=== PATIENT | female | born 1955 | race Caucasian/White ===

== ENCOUNTER 2017-10-13 10:18 | Inpatient (IN) | payer OTHER ==
[~2017-10-13] VITALS: Ht 147.3 cm; Wt 96.3 kg
[~2017-10-13 10:18] MED LIST: AMITRIPTYLINE50 MG PO; DEMEROL HYDROCH50 MG PO; MEVACOR20 MG PO; POTASSIUM OTC PO; PROAIR HFA8.5 GM INH; PROZAC40 MG PO; TRAMADOL50 MG PO; ULTRAM(MONOGRAP50 MG PO; VALIUM5 M1 PO; VITAMIN D1000 IU PO
[2017-10-13 10:46] LABS: ABSOLUTE BASOPHIL COUNT 0 /CUMM (0.0-0.2); ABSOLUTE EOSINOPHIL COUNT 0.1 /CUMM (0.0-0.7); ABSOLUTE GRANULOCYTE CT 4.3 /CUMM (1.4-6.5); ABSOLUTE LYMPH COUNT 1.2 /CUMM (1.2-3.4); ABSOLUTE MONOCYTE COUNT 0.3 /CUMM (0.10-0.60); BASOPHIL % 0.5 % (0.0-2.0); GRANULOCYTE % 72.2 % (42.2-75.2); HEMATOCRIT 41.2 % (37-47); MEAN CORPUSCULAR HGB 28.8 PG (27.0-31.0); MEAN CORPUSCULAR VOLUME 84.9 FL (81.0-99.0); MEAN PLATELET VOLUME 8.9 FL (7.4-10.4); PLATELET COUNT 231 /CUMM (130-400); RBC DISTRIBUTION WIDTH 14.2 % (11.5-14.5); RED BLOOD CELL CT 4.85 /CUMM (4.20-5.40); WHITE BLOOD CELL COUNT 5.9 /CUMM (4.8-10.8)
[2017-10-13 10:52] LABS: PT 10.7 SEC (9.4-12.5)
[2017-10-13] MEDS ORDERED: VITAMIN D31000 UNI1 PO (12:13)
[2017-10-13] MEDS ORDERED: PROZAC40 M1 PO (12:15)
[2017-10-13] MEDS ORDERED: LIPITOR20 M2 PO (12:17)
[2017-10-13] MEDS ORDERED: POTASSIUM PO (12:20)
[2017-10-13] MEDS ORDERED: MULTIVITAMINS1 EAC8 PO (12:22)
--- NOTE | 2017-10-13 12:25 | ED GENERAL ADULT ---
History of Present Illness General Chief Complaint: Chest Pain Stated Complaint: SENT BY DR GODFREY FOR ADMISSION Source: patient, family Exam Limitations: no limitations Vital Signs & Intake/Output Vital Signs & Intake/Output Vital Signs Date Time Temp Pulse Resp B/P B/P Pulse O2 O2 Flow FiO2 Mean Ox Delivery Rate 10/13 2017 60 122/70 10/13 1746 98.3 58 18 128/825 97 10/13 1718 Room Air 10/13 1506 52 18 154/70 96 Room Air 10/13 1215 Room Air Room Air 10/13 1029 98.7 72 18 150/84 97 Room Air Allergies Coded Allergies: codeine (Intermediate, +N/V 10/13/17) oxycodone (From TYLOX) (Intermediate, +N/V 10/13/17) Reconcile Medications Albuterol Sulfate (Proair Hfa) 8.5 GM HFA.AER.AD 2 PUF INH Q4-6 PRN PRN wheezing Amitriptyline Hydrochloride (Amitriptyline) 50 MG TAB 1 TAB PO QPM SLEEP ( Reported) Atorvastatin Calcium (Lipitor) 20 MG TABLET 1 TAB PO DAILY CHOL (Reported) Cholecalciferol (Vitamin D3) (Vitamin D3) 1,000 UNIT CAPSULE 1 CAP PO DAILY SUPPLEMENT (Reported) Diazepam (Valium) 5 MG TAB 5 MG PO TID PRN SPASMS Fluoxetine HCl (Prozac) 40 MG CAPSULE 1 CAP PO DAILY DEPRESSION (Reported) Multivitamin (Multivitamins) 1 EACH CAPSULE 1 CAP PO D SUPPLEMENT (Reported) [POTASSIUM] 50 MG TAB 1 TAB PO DAILY LEG CRAMPS (Reported) Triage Note: 62 Y/O FEMALE SENT BY DR GODFREY FOR ADMISSION. PT STATES SHE HAD A STRESS TEST THE OTHER DAY AND WAS TOLD IT WASN'T NORMAL; STATES DR GODFREY WANTS HER "UNDER CARE AND THEN POSSIBLE CATHATERIZATION MONDAY". REPORTS INTERMITTENT CHEST PAIN, SOB, LIGHTHEADEDNESS AND NAUSEA FOR MONTHS. EKG AND BLOODWORK COMPLETED IN TRIAGE Triage Nurses Notes Reviewed? yes Onset: Abrupt Duration: day(s): Timing: recent history HPI: 10/13/17 9:05 PM 62-year-old female presents to the emergency department complaining of intermittent chest pain over the past several days. Currently in the ED she has 2 out of 10 chest pain. She says she has been under much stress lately. She denies abdominal pain fever or other complaints. Past History Travel History Traveled to [place] past 21 day No Medical History Any Pertinent Medical History? see below for history Neurological: migraine EENT: NONE Cardiovascular: hyperlipidemia Respiratory: bronchitis Gastrointestinal: ulcerative colitis, DIVERTICULOSIS Hepatic: NONE Renal: NONE Musculoskeletal: "NECK ISSUES" Psychiatric: anxiety, insomnia Endocrine: NONE Blood Disorders: NONE Cancer(s): NONE ANALYST/Reproductive: NONE History of MRSA: No History of VRE: No History of CDIFF: No Surgical History Surgical History: non-contributory Psychosocial History Who do you live with Spouse What is your primary language Egyptian Tobacco Use: Quit >30 days ago Family History Hx Contributory? Yes (cad) Review of Systems Review of Systems Constitutional: Denies: fever. EENTM: Reports: no symptoms. Respiratory: Denies: short of breath. Cardiovascular: Reports: chest pain. GI: Denies: abdominal pain. Genitourinary: Reports: no symptoms. Musculoskeletal: Reports: no symptoms. Skin: Reports: no symptoms. Neurological/Psychological: Reports: no symptoms. Hematologic/Endocrine: Reports: no symptoms. Immunologic/Allergic: Reports: no symptoms. Physical Exam Physical Exam General Appearance: well developed/nourished, alert, awake, anxious, mild distress Head: atraumatic, normal appearance, active bleeding Eyes: Bilateral: normal appearance, PERRL, EOMI. Ears, Nose, Throat: normal pharynx, normal ENT inspection Neck: normal inspection, supple, full range of motion Respiratory: normal breath sounds, chest non-tender, no respiratory distress Cardiovascular: regular rate/rhythm Peripheral Pulses: 4+ radial (R), 4+ radial (L) Gastrointestinal: soft, non-tender Back: normal range of motion Extremities: pedal edema Neurologic/Psych: no motor/sensory deficits, awake, alert, oriented x 3 Skin: intact, normal color, warm/dry Core Measures ACS in differential dx? Yes CVA/TIA Diagnosis: No Sepsis Present: No Sepsis Focused Exam Completed? No Progress Differential Diagnoses I considered the following diagnoses in my evaluation of the patient: Plan of Care: Orders Procedure Date/time Status TROPONIN LEVEL 10/14 0000 Active Heart Healthy Diet 10/13 D Active PARTIAL THROMBOPLASTIN TIME 10/13 2330 Active EKG 10/13 2230 Active Weight 10/13 1717 Active Vital Signs 10/13 171 Active Teach/Educate 10/13 171 Active Pain Treatment and Response 10/13 171 Active Nutritional Intake, Monitor 10/13 171 Active Isolation 10/13 1717 Active Intake & Output 10/13 1717 Active Patient Care Conference 10/13 1717 Active Activity/Ambulation 10/13 1717 Active TROPONIN LEVEL 10/13 1630 Complete EKG 10/13 1630 Active URINE DRUG SCREEN FOR ER ONLY 10/13 1427 Complete Pathway - chart 10/13 1421 Active House Staff 10/13 1421 Active Patient Data 10/13 1421 Active Code Status 10/13 1421 Active TYPE & SCREEN (NOT X-MATCH) 10/13 1421 Active Patient Data 10/13 1303 Active ED Holding Orders 10/13 1225 Active Admit to inpatient 10/13 1225 Active Vital Signs 10/13 1225 Active Code Status 10/13 1225 Complete Intake & Output 10/13 1205 Active THYROID STIMULATING HORMONE 10/13 1036 Complete PARTIAL THROMBOPLASTIN TIME 10/13 1036 Complete FREE T4 10/13 1036 Complete PROTHROMBIN TIME 10/13 1029 Complete TROPONIN LEVEL 10/13 1028 Complete COMPREHENSIVE METABOLIC PANEL 10/13 1028 Complete CBC WITHOUT DIFFERENTIAL 10/13 1028 Complete EKG 10/13 1020 Active Lab Add-on Test 10/13 UNK Active VTE Mechanical Prophylaxis 10/13 UNK Active Vital Signs 10/13 UNK Complete Telemetry/Black [employer] Co[employer] Equipment Tender 10/13 UNK Active PSYCHIATRIC CONSULT 10/13 UNK Active ECHOCARDIOGRAM 10/13 UNK Active Current Medications Sig/Reyes Start time Last Medication Dose Stop Time Status Admin Atorvastatin Calcium 20 MG 1700 10/14 1700 AC (Lipitor) Aspirin 325 MG DAILY 10/14 1000 AC (Aspirin) Cholecalciferol 1,000 IU DAILY 10/14 1000 AC (Vitamin D) Fluoxetine HCl 40 MG DAILY 10/14 1000 AC (Prozac) Heparin Sodium 5,000 UNIT Q8 10/13 2200 CAN (Porcine) Metoprolol Tartrate 25 MG BID 10/13 2200 AC (Lopressor) Heparin Sodium 25,000 UNIT Q24H 10/13 1530 AC 10/13 (Porcine) 1714 (Heparin) Sodium Chloride 500 ML Clopidogrel Bisulfate 75 MG DAILY 10/13 1508 AC 10/13 (Plavix) 1553 Acetaminophen 650 MG Q6P PRN 10/13 1430 AC (Tylenol) Acetaminophen/ 1 TAB Q4P PRN 10/13 1415 AC 10/13 Butalbital/Caffeine 2019 (Fioricet) Laboratory Tests 10/13/17 1815: Troponin I < 0.01 10/13/17 1730: Urine Opiates Screen < 100, Methadone Screen < 40, Barbiturate Screen < 60, Ur Phencyclidine Scrn < 6.00, Amphetamines Screen < 100, U Benzodiazepines Scrn < 85, Urine Cocaine Screen < 50, Urine Cannabis Screen > 80.00 H 10/13/17 1036: Anion Gap 11, Estimated GFR > 60, BUN/Creatinine Ratio 22.9, Glucose 133 H, Calcium 10.1, Total Bilirubin 0.7, AST 27, ALT 19, Alkaline Phosphatase 59, Troponin I < 0.01, Total Protein 6.1 L, Albumin 3.8, Globulin 2.3, Albumin/ Globulin Ratio 1.7, TSH 1.490, Free T4 0.87, PT 10.7, INR 0.98, APTT 32, CBC w Diff NO MAN DIFF REQ, RBC 4.85, MCV 84.9, MCH 28.8, MCHC 34.0, RDW 14.2, MPV 8.9 , Gran % 72.2, Lymphocytes % 20.3 L, Monocytes % 5.0, Eosinophils % 2.0, Basophils % 0.5, Absolute Granulocytes 4.3, Absolute Lymphocytes 1.2, Absolute Monocytes 0.3, Absolute Eosinophils 0.1, Absolute Basophils 0 CXR Impression: no acute abnormality, no infiltrates Initial ED EKG: NSR, nonspecific ST T wave chg Prior EKG: changed (nonspecific but slight changes) Departure Departure Disposition: STILL A PATIENT Condition: Stable Clinical Impression Primary Impression: Acute electrocardiogram changes Secondary Impressions: Chest pain Referrals: Zuñiga Max FREEMAN (PCP/Family) Departure Forms: Customer Survey General Discharge Information Admission Note Spoke With: Madan FREEMAN PHD,Max Wise Documentation of Exam: Documentation of any treatments & extenuating circumstances including Concerns Regarding Discharge (functional status, medication knowledge or non-compliance, living conditions, etc.) that warrant an admission rather than observation: [The patient is being admitted to Dr. Godfrey's service to telemetry. She is having active ongoing intermittent chest pressure. High risk for coronary artery disease. She will need serial troponins, inpatient echocardiogram, and likely cardiac catheterization. She has acute but nonspecific EKG changes. Critical Care Note Critical Care Note Critical Care Time: 30-74 min
--- NOTE | 2017-10-13 12:51 | RADIOLOGY REPORT ---
EXAMINATION: XR PORTABLE CHEST CLINICAL INFORMATION: Shortness of breath COMPARISON: 01/14/2016 TECHNIQUE: Portable frontal view of the chest was obtained. FINDINGS: The lungs are well-inflated and clear. Trachea is midline in position. No evidence of interstitial disease, focal consolidation, mass, pneumothorax or pleural effusion. The cardiomediastinal silhouette and pulmonary zuleika have normal size and contour. The visualized cervical spine fusion hardware is intact. The examined upper abdomen is unremarkable. IMPRESSION: No acute cardiopulmonary findings.
--- NOTE | 2017-10-13 13:17 | History & Physical ---
Aleksandr FREEMAN,[facility] 10/13/17 1317: General Information and HPI MD Statement: I have seen and personally examined JOHAN CARBALLO and documented this H&P. The patient is a 62 year old F who presented with a patient stated chief complaint of [chest pain]. Source of Information: patient History of Present Illness: 62 yr old F with a pmhx hld, migraines, anxiety, UC presenting for chest pain. The patient states that the pain started 2 years ago and she associated it with stress and anxiety and ignored it. The patient recently moved to [place] on MAY 09. States she had a lot of family stress and since moving down there her chest pain has been getting progressively worst. States her migraines have also been getting worst and has had 4 episodes of migraines since being there. States that she recently moved [place] to [place] and had a bout of bronchitis. She saw Dr. Zuñiga 2 weeks ago. She got a ekg by her pcp due to her anxiety. Her PCP then sent the ekg to the crank hand (Dr. Hager) who then had her for a f/u exercise stress test this monday. She was seen today in Dr. Hager's office for f/u. He sent her in to the ED to be admitted for cath on monday. States she has had nonstop CP since 2AM today. Nothing improves or worsens the chest pain. Also compains of exertional SOB. [place], lightheadedness. The patient states the pain is retrosternal. Pain feels like a compression, intermittent, burst of sharp pain with no radiation. States she has chronic back pain due to arhtiritis. States decreased sleep. Denies vomiting, abd pain, fevers, chills or changes in elimination. Allergies/Medications Allergies: Coded Allergies: codeine (Intermediate, +N/V 10/13/17) oxycodone (From TYLOX) (Intermediate, +N/V 10/13/17) Home Med list Albuterol Sulfate (Proair Hfa) 8.5 GM HFA.AER.AD 2 PUF INH Q4-6 PRN PRN wheezing Amitriptyline Hydrochloride (Amitriptyline) 50 MG TAB 1 TAB PO QPM SLEEP ( Reported) Atorvastatin Calcium (Lipitor) 20 MG TABLET 1 TAB PO DAILY CHOL (Reported) Cholecalciferol (Vitamin D3) (Vitamin D3) 1,000 UNIT CAPSULE 1 CAP PO DAILY SUPPLEMENT (Reported) Diazepam (Valium) 5 MG TAB 5 MG PO TID PRN SPASMS Fluoxetine HCl (Prozac) 40 MG CAPSULE 1 CAP PO DAILY DEPRESSION (Reported) Multivitamin (Multivitamins) 1 EACH CAPSULE 1 CAP PO D SUPPLEMENT (Reported) [POTASSIUM] 50 MG TAB 1 TAB PO DAILY LEG CRAMPS (Reported) Past History Travel History Traveled to [place] past 21 day No Medical History Neurological: migraine EENT: NONE Cardiovascular: hyperlipidemia Respiratory: bronchitis Gastrointestinal: ulcerative colitis, DIVERTICULOSIS Hepatic: NONE Renal: NONE Musculoskeletal: "NECK ISSUES" Psychiatric: anxiety, insomnia Endocrine: NONE Blood Disorders: NONE Cancer(s): NONE 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 Cardiovascular: Reports: chest pain. GI: Reports: nausea. Denies: abdominal pain, vomiting. Neurological/Psychological: Reports: headache. Exam & Diagnostic Data Last 24 Hrs of Vital Signs/I&O Vital Signs Date Time Temp Pulse Resp B/P B/P Pulse O2 O2 Flow FiO2 Mean Ox Delivery Rate 10/13 2136 60 122/70 10/13 2018 60 122/70 10/13 1746 98.3 58 18 128/825 97 10/13 1718 Room Air 10/13 1506 52 18 154/70 96 Room Air 10/13 1215 Room Air Room Air 10/13 1029 98.7 72 18 150/84 97 Room Air Intake & Output 10/13 1600 10/13 0800 10/13 0000 Intake Total Output Total Balance Patient 209 lb Weight Weight Reported by Patient Measurement Method Physical Exam General Appearance Alert, Oriented X3, Cooperative, No Acute Distress HEENT Limited left lateral gaze of left eye - issue since , dry oral mucosa Cardiovascular Regular Rate, Normal S1, Normal S2, tenderness to palpation of sternum Lungs Clear to Auscultation, Normal Air Movement Abdomen Normal Bowel Sounds, Soft, No Tenderness Extremities 2+ radial pulses Vascular no carotid bruits Last 24 Hrs of Labs/[place]: Laboratory Tests 10/13/17 2230: Troponin I Cancelled 10/13/17 1815: Troponin I < 0.01 10/13/17 1730: Urine Opiates Screen < 100, Methadone Screen < 40, Barbiturate Screen < 60, Ur Phencyclidine Scrn < 6.00, Amphetamines Screen < 100, U Benzodiazepines Scrn < 85, Urine Cocaine Screen < 50, Urine Cannabis Screen > 80.00 H 10/13/17 1036: Anion Gap 11, Estimated GFR > 60, BUN/Creatinine Ratio 22.9, Glucose 133 H, Calcium 10.1, Total Bilirubin 0.7, AST 27, ALT 19, Alkaline Phosphatase 59, Troponin I < 0.01, Total Protein 6.1 L, Albumin 3.8, Globulin 2.3, Albumin/ Globulin Ratio 1.7, TSH 1.490, Free T4 0.87, PT 10.7, INR 0.98, APTT 32, CBC w Diff NO MAN DIFF REQ, RBC 4.85, MCV 84.9, MCH 28.8, MCHC 34.0, RDW 14.2, MPV 8.9 , Gran % 72.2, Lymphocytes % 20.3 L, Monocytes % 5.0, Eosinophils % 2.0, Basophils % 0.5, Absolute Granulocytes 4.3, Absolute Lymphocytes 1.2, Absolute Monocytes 0.3, Absolute Eosinophils 0.1, Absolute Basophils 0 Assessment/Plan Assessment: A: 62 yr old F with a pmhx hld, migraines, anxiety, UC presenting for chest pain. P: #unstable angina Trop <.01 -follow cardio recommendations -trends trops and ekg until peak -begin IV heparin -start aspirin, statin, plavix -start metorolol per cards -start NTG paste for chest pain -plan for NPO monday for cath on monday #social psych issues Patient requesting psych consult -cont fluoxetine -f/u psych consult #migraines -cont fioricet -f.u with psych consult as patient wants to try verapamil #FULL CODE #DVT ppx with IV heparin drip As Ranked By This Provider Problem List: 1. Unstable angina 2. Migraines Core Measures/Misc (04/16) Acute Coronary Syndrome ACS Diagnosis: Yes Congestive Heart Failure Congestive Heart Failure Diagnosis No Cerebrovascular Accident CVA/TIA Diagnosis: No VTE (View Protocol) VTE Risk Factors Acute Medical Illness No Mechanical VTE Prophylaxis d/t Other No VTE Pharm Prophylaxis d/t NA PharmProphylax ordered Sepsis (View protocol) Sepsis Present: No Jadyn FREEMAN,[facility] 10/14/17 0824: Resident Review Statement Resident Statement: examined this patient, discussed with investigator internal affairs, agreed with investigator internal affairs Other Findings: Ms. Carballo is 62 year old female with PMH of hyperlipidemia, depression, and excised T who presented to ED from Dr. Hager office for admission abnormal stress test. Problem list #Atypical chest pain with abnormal stress test #Hyperlipidemia #Anxiety and depression #Low vitamin D Plan Admit to telemetry floor Vitals every shift Troponin and EKG 3 first set was negative Guaiac stool and start IV heparin without bolus Urine toxicology, patient reported marijuana use Start metoprolol for rate control after ruling out cocaine use in U tox Start aspirin and Plavix Plan for cardiac cath on Monday Continue home medication Heart healthy diet Code full
[2017-10-13 16:50] LABS: PTT 32 SEC (25-37)
--- NOTE | 2017-10-13 16:50 | Cons- Cardiology ---
General Information and HPI Consulting Request Date of Consult: 10/13/17 Requested By: Madan FREEMAN PHD,Max Wise History of Present Illness: Val is a 62 year old female with history of dyslipidemia who has noted some degree of chest discomfort for two years. Over the past 4 months it has become worse and over the past few days it has become much more prominent with episodes severe enough that the patient was contemplating coming to the ER. The discomfort is described as a burning or pressure sensation behind her left breast that is exacerbated by physical exertion although it sometime also occurs at rest. At times it will radiate toward her back and ears. There is associated nausea and diaphoresis. The patient also has shortness of breath with mild exertions and can climb stairs but otherwise does not engage in vigorous activity. Lastly, this patient also has occasional lightheadednes and palpitations. Allergies/Medications Allergies: Coded Allergies: codeine (Intermediate, +N/V 10/13/17) oxycodone (From TYLOX) (Intermediate, +N/V 10/13/17) Home Med List: Albuterol Sulfate (Proair Hfa) 8.5 GM HFA.AER.AD 2 PUF INH Q4-6 PRN PRN wheezing Amitriptyline Hydrochloride (Amitriptyline) 50 MG TAB 1 TAB PO QPM SLEEP ( Reported) Atorvastatin Calcium (Lipitor) 20 MG TABLET 1 TAB PO DAILY CHOL (Reported) Cholecalciferol (Vitamin D3) (Vitamin D3) 1,000 UNIT CAPSULE 1 CAP PO DAILY SUPPLEMENT (Reported) Diazepam (Valium) 5 MG TAB 5 MG PO TID PRN SPASMS Fluoxetine HCl (Prozac) 40 MG CAPSULE 1 CAP PO DAILY DEPRESSION (Reported) Multivitamin (Multivitamins) 1 EACH CAPSULE 1 CAP PO D SUPPLEMENT (Reported) [POTASSIUM] 50 MG TAB 1 TAB PO DAILY LEG CRAMPS (Reported) Review of Systems Review of Systems: A review of systems is remarkable for an intermittent loss of vision described as a shade lowered over her right eye. 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 Other Medical Hx: OBESITY (278.00 | E66.9) H/O NECK SURGERY (V15.29 | Z98.890) for disc disease with fusion and titanium plate S/P T&A (STATUS POST TONSILLECTOMY AND ADENOIDECTOMY) (V45.89 | Z90.89) S/P HYSTERECTOMY (V88.01 | Z90.710) partical ANXIETY (300.00 | F41.9) Diverticulitis Of Colon Arthritis left sided carpal tunnel release ulcerative colitis Hyperlipidemia Migraine Headache Surgical History Surgical History: hysterectomy, laminectomy (cervical), tonsillectomy, left carpal tunnel release Psychosocial History Smoking Status: Former Smoker (Quit 40 years ago) Exam & Diagnostic Data Vital Signs and I&O Vital Signs Date Time Temp Pulse Resp B/P B/P Pulse O2 O2 Flow FiO2 Mean Ox Delivery Rate 10/13 1506 52 18 154/70 96 Room Air 10/13 1215 Room Air Room Air 10/13 1029 98.7 72 18 150/84 97 Room Air Intake & Output 10/13 1600 10/13 0800 10/13 0000 10/12 1600 10/12 0800 10/12 0000 Intake Total Output Total Balance Patient 209 lb Weight Weight Reported by Patient Measurement Method Physical Exam: General: WD/obese female in NAD; alert and oriented x 3 HEENT: NC/AT, PERRL, EOMI Neck: no JVD, no carotid bruit Heart: RRR w/o Murmur Lungs: clear bilaterally Abdomen: soft, NT, +ve bowel sounds Extremities: no edema Assessment/Plan Assessment/Plan * This patient has multiple risk factors for coronary artery disease and has acutely worsening symptoms of chest pain that are very suggestive of unstable angina. In addition, she had a recent stress test without nuclear imaging that was consistent with ischemia. We will admit this patient to telemetry and rule her out for an GA by cardiac enymes. Obtain an echocardiogram if not recently done. Begin anticoagulation with aspirin 325mg daily, Plavix 75mg daily and IV heparin. Continue her statin. Begin Metoprolol 25mg BID. If recurrent chest pain begin NTG paste. I anticipate a cardiac catheterization at [facility] on Monday morning with a tranfer there on Monday night. Consult Acknowledgment - Thank you for your consult request.
[2017-10-13 17:46] VITALS: BP 128/825
[2017-10-13 20:18] VITALS: BP 122/70
[2017-10-14 01:15] LABS: PTT 56 SEC (25-37)
[2017-10-14 07:00] VITALS: BP 142/68
--- NOTE | 2017-10-14 08:37 | PN-Observation ---
Observation Note Observation Note _ I have personally examined HARISJOHAN Zamudio. her disposition is uncertain at this time. Before a determination can be made, she requires continued observation for the following reasons []. Subjective Follow-up For: Unstable angina Rule out ACS Review of Systems Constitutional: Reports: see HPI. Objective Last 24 Hrs of Vital Signs/I&O Vital Signs Date Time Temp Pulse Resp B/P B/P Pulse O2 O2 Flow FiO2 Mean Ox Delivery Rate 10/14 0814 60 142/68 10/14 0700 97.8 58 18 142/68 95 Room Air 10/13 2137 60 122/70 10/13 2018 60 122/70 10/13 1746 98.3 58 18 128/825 97 10/13 1718 Room Air 10/13 1506 52 18 154/70 96 Room Air 10/13 1215 Room Air Room Air 10/13 1029 98.7 72 18 150/84 97 Room Air Intake & Output 10/14 1600 10/14 0800 10/14 0000 Intake Total 194.8 490 Output Total 400 Balance 194.8 90 Intake, IV 94.8 130 Intake, Oral 100 360 Output, Urine 400 Patient 212 lb Weight Weight Bed scale Measurement Method Current Medications: Current Medications Sig/Reyes Start time Last Medication Dose Route Stop Time Status Admin Acetaminophen 650 MG Q6P PRN 10/13 1430 AC PO Acetaminophen/ 1 TAB Q4P PRN 10/13 1415 AC 10/14 Butalbital/Caffeine PO 0342 Alprazolam 0 .STK-MED ONE 10/13 1411 DC PO Alprazolam 0.5 MG ONCE ONE 10/13 1230 DC 10/13 PO 10/13 1231 1409 Aspirin 325 MG DAILY 10/14 1000 AC 10/14 PO 0814 Aspirin 0 .STK-MED ONE 10/13 1411 DC PO Aspirin 325 MG ONCE ONE 10/13 1230 DC 10/13 PO 10/13 1231 1409 Atorvastatin Calcium 20 MG 1700 10/14 1700 AC PO Cholecalciferol 1,000 IU DAILY 10/14 1000 AC 10/14 PO 0814 Clopidogrel Bisulfate 0 .STK-MED ONE 10/13 1548 DC PO Clopidogrel Bisulfate 75 MG DAILY 10/13 1508 AC 10/14 PO 0814 Fluoxetine HCl 40 MG DAILY 10/14 1000 AC 10/14 PO 0814 Heparin Sodium 2,889 UNIT BOLUS ONE 10/14 0200 DC 10/14 (Porcine) IV 10/14 0201 0200 Heparin Sodium 5,000 UNIT Q8 10/13 2200 CAN (Porcine) SC Heparin Sodium 25,000 UNIT Q24H 10/13 1530 AC 10/13 (Porcine) IV 1714 Sodium Chloride 500 ML Metoprolol Tartrate 25 MG BID 10/13 220 AC 10/14 PO 0814 Last 24 Hrs of Labs/Mics: Laboratory Tests 10/14/17 0015: Troponin I < 0.01, APTT 56 H 10/13/17 2230: Troponin I Cancelled 10/13/17 1815: Troponin I < 0.01 10/13/17 1730: Urine Opiates Screen < 100, Methadone Screen < 40, Barbiturate Screen < 60, Ur Phencyclidine Scrn < 6.00, Amphetamines Screen < 100, U Benzodiazepines Scrn < 85, Urine Cocaine Screen < 50, Urine Cannabis Screen > 80.00 H 10/13/17 1036: Anion Gap 11, Estimated GFR > 60, BUN/Creatinine Ratio 22.9, Glucose 133 H, Calcium 10.1, Total Bilirubin 0.7, AST 27, ALT 19, Alkaline Phosphatase 59, Troponin I < 0.01, Total Protein 6.1 L, Albumin 3.8, Globulin 2.3, Albumin/ Globulin Ratio 1.7, TSH 1.490, Free T4 0.87, PT 10.7, INR 0.98, APTT 32, CBC w Diff NO MAN DIFF REQ, RBC 4.85, MCV 84.9, MCH 28.8, MCHC 34.0, RDW 14.2, MPV 8.9 , Gran % 72.2, Lymphocytes % 20.3 L, Monocytes % 5.0, Eosinophils % 2.0, Basophils % 0.5, Absolute Granulocytes 4.3, Absolute Lymphocytes 1.2, Absolute Monocytes 0.3, Absolute Eosinophils 0.1, Absolute Basophils 0
[2017-10-14 09:07] LABS: PTT 107 SEC (25-37)
--- NOTE | 2017-10-14 09:08 | PN- Housestaff ---
Subjective Follow-up For: A typical chest pain Subjective: Patient was seen and examined this morning, vital signs are stable, continue to have reproducable CP, no SOB or palpation. patient offered no complaints. Review of Systems Constitutional: Reports: see HPI. Objective Last 24 Hrs of Vital Signs/I&O Vital Signs Date Time Temp Pulse Resp B/P B/P Pulse O2 O2 Flow FiO2 Mean Ox Delivery Rate 10/14 0814 60 142/68 10/14 0700 97.8 58 18 142/68 95 Room Air 10/13 2137 60 122/70 10/13 2018 60 122/70 10/13 1746 98.3 58 18 128/825 97 10/13 1718 Room Air 10/13 1506 52 18 154/70 96 Room Air 10/13 1215 Room Air Room Air 10/13 1029 98.7 72 18 150/84 97 Room Air Intake & Output 10/14 1600 10/14 0800 10/14 0000 Intake Total 194.8 490 Output Total 400 Balance 194.8 90 Intake, IV 94.8 130 Intake, Oral 100 360 Output, Urine 400 Patient 96.303 kg Weight Weight Bed scale Measurement Method Physical Exam General Appearance: Alert, Oriented X3, Cooperative, No Acute Distress Skin: No Rashes Skin Temp/Moisture Exam: Warm/Dry HEENT: Atraumatic, PERRLA, EOMI Neck: Supple Cardiovascular: Regular Rate, Normal S1, Normal S2, No Murmurs Lungs: Clear to Auscultation, Normal Air Movement Abdomen: Normal Bowel Sounds, Soft, No Tenderness Neurological: Normal Speech, Strength at 5/5 X4 Ext, Normal Tone Extremities: No Clubbing, No Cyanosis, No Edema, Normal Pulses Assessment/Plan Assessment: A: 62 yr old F with a pmhx hld, migraines, anxiety, UC presenting for chest pain. P: #unstable angina Trop <.01 -trends trops and ekg x3 negative -Continue IV heparin -Continue aspirin, statin, plavix -Continue metorolol per cards -start NTG paste for chest pain -plan for NPO monday for cath on monday AM #social psych issues Patient requesting psych consult -cont fluoxetine -f/u psych consult #migraines -cont fioricet -f.u with psych consult as patient wants to try verapamil #FULL CODE #DVT ppx with IV heparin drip Problem List: 1. Chest pain Pain Ratin Pain Location: n/a Pain Goal: Pain 4 or less Pain Plan: see medication Tomorrow's Labs & Rationales: CBC BMP
[2017-10-14 14:45] LABS: PTT 45 SEC (25-37)
[2017-10-14 15:37] VITALS: BP 126/80
--- NOTE | 2017-10-14 18:34 | PN- Cardiology ---
Subjective Subjective: Stable with no further symptoms on IV heparin Objective Vital Signs and I&Os Vital Signs Date Time Temp Pulse Resp B/P B/P Pulse O2 O2 Flow FiO2 Mean Ox Delivery Rate 10/14 1537 98.2 57 18 126/80 98 10/14 0814 60 142/68 10/14 0700 97.8 58 18 142/68 95 Room Air 10/13 2137 60 122/70 10/13 2017 60 122/70 Intake & Output 10/14 1600 10/14 0800 10/14 0000 10/13 1600 10/13 0800 10/13 0000 Intake Total 510 194.8 490 Output Total 400 Balance 510 194.8 90 Intake, IV 10 94.8 130 Intake, Oral 500 100 360 Output, Urine 400 Patient 212 lb 209 lb Weight Weight Bed scale Reported by Patient Measurement Method Physical Exam: General Appearance: Alert, Oriented X3, Cooperative, No Acute Distress, overweight Skin: Normal Skin Temp/Moisture Exam: Warm/Dry HEENT: Atraumatic, PERRLA, EOMI Neck: Supple Cardiovascular: Regular Rate, Normal S1, Normal S2, No Murmurs Lungs: Clear to Auscultation bilaterally Abdomen: Normal Bowel Sounds, Soft, No Tenderness Neurological: Normal / nonfocal Extremities: No Clubbing, No Cyanosis, No Edema, Normal Pulses Current Medications: Current Medications Sig/Reyes Start time Last Medication Dose Route Stop Time Status Admin Acetaminophen 650 MG Q6P PRN 10/13 1430 AC PO Acetaminophen/ 1 TAB Q4P PRN 10/13 1415 AC 10/14 Butalbital/Caffeine PO 1211 Aspirin 325 MG DAILY 10/14 1000 AC 10/14 PO 0814 Atorvastatin Calcium 20 MG 1700 10/14 1700 AC 10/14 PO 1632 Cholecalciferol 1,000 IU DAILY 10/14 1000 AC 10/14 PO 0814 Clopidogrel Bisulfate 75 MG DAILY 10/13 1508 AC 10/14 PO 0814 Fluoxetine HCl 40 MG DAILY 10/14 1000 AC 10/14 PO 0814 Heparin Sodium 2,889 UNIT BOLUS ONE 10/14 0200 DC 10/14 (Porcine) IV 10/14 0201 0200 Heparin Sodium 5,000 UNIT .STK-MED ONE 10/14 0152 DC (Porcine) IV 10/14 0153 Heparin Sodium 25,000 UNIT Q24H 10/13 1530 AC 10/14 (Porcine) IV 1632 Sodium Chloride 500 ML Metoprolol Tartrate 25 MG BID 10/13 2200 AC 10/14 PO 0814 Results Last 48 Hrs of Labs/Mics: Laboratory Tests 10/14/17 1406: APTT 45 H 10/14/17 0826: APTT 107 *H 10/14/17 0015: Troponin I < 0.01, APTT 56 H 10/13/17 2230: Troponin I Cancelled 10/13/17 1815: Troponin I < 0.01 10/13/17 1730: Urine Opiates Screen < 100, Methadone Screen < 40, Barbiturate Screen < 60, Ur Phencyclidine Scrn < 6.00, Amphetamines Screen < 100, U Benzodiazepines Scrn < 85, Urine Cocaine Screen < 50, Urine Cannabis Screen > 80.00 H 10/13/17 1036: Anion Gap 11, Estimated GFR > 60, BUN/Creatinine Ratio 22.9, Glucose 133 H, Calcium 10.1, Total Bilirubin 0.7, AST 27, ALT 19, Alkaline Phosphatase 59, Troponin I < 0.01, Total Protein 6.1 L, Albumin 3.8, Globulin 2.3, Albumin/ Globulin Ratio 1.7, TSH 1.490, Free T4 0.87, PT 10.7, INR 0.98, APTT 32, CBC w Diff NO MAN DIFF REQ, RBC 4.85, MCV 84.9, MCH 28.8, MCHC 34.0, RDW 14.2, MPV 8.9 , Gran % 72.2, Lymphocytes % 20.3 L, Monocytes % 5.0, Eosinophils % 2.0, Basophils % 0.5, Absolute Granulocytes 4.3, Absolute Lymphocytes 1.2, Absolute Monocytes 0.3, Absolute Eosinophils 0.1, Absolute Basophils 0 Assessment/Plan Assessment/Plan Assessment: 1. Chest pain syndrome suggestive of unstable angina 2. HLD 3. Anxiety. Recommendations: - Continue current regimen - ECG with any recurrent symptoms - NPO after midnight monday for cath on Monday. - Probable transfer to [facility] on Monday night Continue telemetry? Yes
[2017-10-14 22:59] LABS: PTT 52 SEC (25-37)
[2017-10-15 06:00] VITALS: BP 116/68
[2017-10-15 07:33] LABS: PTT 91 SEC (25-37)
[2017-10-15 07:40] LABS: ABSOLUTE BASOPHIL COUNT 0 /CUMM (0.0-0.2); ABSOLUTE EOSINOPHIL COUNT 0.1 /CUMM (0.0-0.7); ABSOLUTE GRANULOCYTE CT 3.1 /CUMM (1.4-6.5); ABSOLUTE LYMPH COUNT 1.8 /CUMM (1.2-3.4); ABSOLUTE MONOCYTE COUNT 0.3 /CUMM (0.10-0.60); BASOPHIL % 0.7 % (0.0-2.0); EOSINOPHIL % 2.2 % (0-5); GRANULOCYTE % 58.1 % (42.2-75.2); HEMATOCRIT 42.1 % (37-47); MEAN CORPUSCULAR HGB 28.6 PG (27.0-31.0); MEAN CORPUSCULAR HGB CONC 33.1 G/DL (33.0-37.0); MEAN CORPUSCULAR VOLUME 86.4 FL (81.0-99.0); MEAN PLATELET VOLUME 9.5 FL (7.4-10.4); PLATELET COUNT 222 /CUMM (130-400); RBC DISTRIBUTION WIDTH 14.2 % (11.5-14.5); RED BLOOD CELL CT 4.87 /CUMM (4.20-5.40); WHITE BLOOD CELL COUNT 5.3 /CUMM (4.8-10.8)
--- NOTE | 2017-10-15 08:55 | PN- Housestaff ---
Subjective Follow-up For: A typical chest pain Tele-Events Since Last Visit: No overnight events, bradycardia in the range of 4550 Subjective: Patient was seen and examined at bedside, continues to complain of chest tenderness and reproducible pain, denies any fever, chills, nausea, vomiting, palpitation Review of Systems Constitutional: Reports: see HPI. Objective Last 24 Hrs of Vital Signs/I&O Vital Signs Date Time Temp Pulse Resp B/P B/P Pulse O2 O2 Flow FiO2 Mean Ox Delivery Rate 10/15 0839 55 116/68 10/15 0600 97.6 44 18 116/68 93 10/14 2300 98.6 46 18 97 10/14 2140 122/66 10/14 1537 98.2 57 18 126/80 98 Intake & Output 10/15 1600 10/15 0800 10/15 0000 Intake Total 159.2 132.2 Output Total Balance 159.2 132.2 Intake, IV 159.2 32.2 Intake, Oral 100 Physical Exam General Appearance: Alert, Oriented X3, Cooperative, No Acute Distress Skin: No Rashes, No Breakdown, No Significant Lesion HEENT: Atraumatic, PERRLA, EOMI, Mucous Membr. moist/pink Neck: Supple, No JVD, No thryomegaly Cardiovascular: Normal S1, Normal S2, No Murmurs Lungs: Clear to Auscultation Abdomen: Normal Bowel Sounds, Soft, No Tenderness Neurological: Normal Speech, Strength at 5/5 X4 Ext, Normal Tone, Sensation Intact Extremities: No Clubbing Assessment/Plan Assessment: 62 yr old F with a pmhx hld, migraines, anxiety, UC presenting for chest pain. #unstable angina Trop <.01 Serial troponin and EKG were negative -Continue IV heparin -EKG with any recurrence of the symptoms -Continue aspirin, statin, plavix -Continue metorolol per cards -start NTG paste for chest pain -plan for NPO tonight for cath tomorrow morning #social psych issues Patient requesting psych consult -cont fluoxetine -f/u psych consult #migraines -cont fioricet -f.u with psych consult as patient wants to try verapamil #FULL CODE #DVT ppx with IV heparin drip Problem List: 1. Unstable angina Pain Ratin Pain Location: CHEST Pain Goal: Remain pain free Pain Plan: PATHWAY Tomorrow's Labs & Rationales: CBC BEP PTT
--- NOTE | 2017-10-15 09:33 | PN- Cardiology ---
Subjective Subjective: Clinically stable with no recurrent symptoms. Objective Vital Signs and I&Os Vital Signs Date Time Temp Pulse Resp B/P B/P Pulse O2 O2 Flow FiO2 Mean Ox Delivery Rate 10/15 0839 55 116/68 10/15 0600 97.6 44 18 116/68 93 10/14 2300 98.6 46 18 97 10/14 2140 122/66 10/14 1537 98.2 57 18 126/80 98 Intake & Output 10/15 1600 10/15 0800 10/15 0000 10/14 1600 10/14 0800 10/14 0000 Intake Total 159.2 132.2 510 194.8 490 Output Total 400 Balance 159.2 132.2 510 194.8 90 Intake, IV 159.2 32.2 10 94.8 130 Intake, Oral 100 500 100 360 Output, Urine 400 Patient 212 lb Weight Weight Bed scale Measurement Method Physical Exam: General Appearance: Alert, Oriented X3, Cooperative, No Acute Distress, overweight Skin: Normal Skin Temp/Moisture Exam: Warm/Dry HEENT: Atraumatic, PERRLA, EOMI Neck: Supple Cardiovascular: Regular Rate, Normal S1, Normal S2, No Murmurs Lungs: Clear to Auscultation bilaterally Abdomen: Normal Bowel Sounds, Soft, No Tenderness Neurological: Normal / nonfocal Extremities: No Clubbing, No Cyanosis, No Edema, Normal Pulses Current Medications: Current Medications Sig/Reyes Start time Last Medication Dose Route Stop Time Status Admin Acetaminophen 650 MG Q6P PRN 10/13 1430 AC PO Acetaminophen/ 1 TAB Q4P PRN 10/13 1415 AC 10/14 Butalbital/Caffeine PO 2141 Aspirin 325 MG DAILY 10/14 1000 AC 10/15 PO 0840 Atorvastatin Calcium 20 MG 1700 10/14 1700 AC 10/14 PO 1632 Cholecalciferol 1,000 IU DAILY 10/14 1000 AC 10/15 PO 0839 Clopidogrel Bisulfate 75 MG DAILY 10/13 1508 AC 10/15 PO 0839 Fluoxetine HCl 40 MG DAILY 10/14 1000 AC 10/15 PO 0839 Heparin Sodium 2,889 UNIT BOLUS ONE 10/15 0010 DC 10/15 (Porcine) IV 10/15 0011 0010 Heparin Sodium 25,000 UNIT Q24H 10/13 1530 AC 10/14 (Porcine) IV 1632 Sodium Chloride 500 ML Metoprolol Tartrate 25 MG BID 10/13 2200 AC 10/15 PO 0839 Results Last 48 Hrs of Labs/Mics: Laboratory Tests 10/15/17 0625: Anion Gap 8, Estimated GFR > 60, BUN/Creatinine Ratio 22.9, APTT 91 H, CBC w Diff NO MAN DIFF REQ, RBC 4.87, MCV 86.4, MCH 28.6, MCHC 33.1, RDW 14.2, MPV 9.5 , Gran % 58.1, Lymphocytes % 33.2, Monocytes % 5.8, Eosinophils % 2.2, Basophils % 0.7, Absolute Granulocytes 3.1, Absolute Lymphocytes 1.8, Absolute Monocytes 0.3, Absolute Eosinophils 0.1, Absolute Basophils 0 10/14/17 2215: APTT 52 H 10/14/17 1406: APTT 45 H 10/14/17 0826: APTT 107 *H 10/14/17 0015: Troponin I < 0.01, APTT 56 H 10/13/17 2230: Troponin I Cancelled 10/13/17 1815: Troponin I < 0.01 10/13/17 1730: Urine Opiates Screen < 100, Methadone Screen < 40, Barbiturate Screen < 60, Ur Phencyclidine Scrn < 6.00, Amphetamines Screen < 100, U Benzodiazepines Scrn < 85, Urine Cocaine Screen < 50, Urine Cannabis Screen > 80.00 H 10/13/17 1036: Anion Gap 11, Estimated GFR > 60, BUN/Creatinine Ratio 22.9, Glucose 133 H, Calcium 10.1, Total Bilirubin 0.7, AST 27, ALT 19, Alkaline Phosphatase 59, Troponin I < 0.01, Total Protein 6.1 L, Albumin 3.8, Globulin 2.3, Albumin/ Globulin Ratio 1.7, TSH 1.490, Free T4 0.87, PT 10.7, INR 0.98, APTT 32, CBC w Diff NO MAN DIFF REQ, RBC 4.85, MCV 84.9, MCH 28.8, MCHC 34.0, RDW 14.2, MPV 8.9 , Gran % 72.2, Lymphocytes % 20.3 L, Monocytes % 5.0, Eosinophils % 2.0, Basophils % 0.5, Absolute Granulocytes 4.3, Absolute Lymphocytes 1.2, Absolute Monocytes 0.3, Absolute Eosinophils 0.1, Absolute Basophils 0 Assessment/Plan Assessment/Plan Assessment: 1. Chest pain syndrome suggestive of unstable angina 2. HLD 3. Anxiety. Recommendations: - Continue current regimen; continue IV heparin - ECG with any recurrent symptoms - NPO after midnight monday for cath on Monday. - Probable transfer to [facility] on Monday night; please make sure all appropriate paperwork has been completed Continue telemetry? Yes
[2017-10-15 14:57] VITALS: BP 102/68
[2017-10-15 16:06] LABS: PTT 49 SEC (25-37)
--- NOTE | 2017-10-15 17:29 | Discharge Summary ---
Visit Information Visit Dates Admission Date: 10/13/17 Discharge Date: 10/15/2017 Hospital Course Course Attending Physician: Madan FREEMAN PHD,Max Wise Primary Care Physician: Max Zuñiga MD Hospital Course: Mrs. Hodgson is a 62 yo lady with history of dyslipidemia who has noted some degree of chest discomfort for two years. Over the past 4 months it has become worse and over the past few days it has become much more prominent with episodes severe enough that the patient was contemplating coming to the ER. The discomfort is described as a burning or pressure sensation behind her left breast that is exacerbated by physical exertion although it sometime also occurs at rest. At times it will radiate toward her back and ears. There is associated nausea and diaphoresis. The patient also has shortness of breath with mild exertions and can climb stairs but otherwise does not engage in vigorous activity. Lastly, this patient also has occasional lightheadednes and palpitations. Multiple risk factors for coronary artery disease and has acutely worsening symptoms of chest pain that are very suggestive of unstable angina. In addition, she had a recent stress test without nuclear imaging that was consistent with ischemia. Pateint admitted to telemetry floor, she was ruled out for ACS with serial troponin and EKGs, we started anticoagulation with aspirin 325mg daily, Plavix 75mg daily and IV heparin. We continued her statin. We started Metoprolol 25mg BID. She was seen by tightening machine operator who recommended a cardiac catheterization at [facility] on Monday morning with a tranfer there on Monday night. Complications: Non Allergies: Coded Allergies: codeine (Intermediate, +N/V 10/13/17) oxycodone (From TYLOX) (Intermediate, +N/V 10/13/17) Disposition Summary Disposition Principal Diagnosis: 1. Chest pain syndrome suggestive of unstable angina 2. HLD 3. Anxiety. Additional Diagnosis: Dyslipidemia Discharge Disposition: other general hospital Discharge Instructions General Discharge Information Code Status: Full Code Patient's Diet: Heart healthy diet Patient's Activity: As tolerated Follow-Up Instructions/Appts: F/U with your tightening machine operator F/U with your PCP Take your medications as prescribed Medications at Discharge Discharge Medications: Continue taking these medications: Amitriptyline Hydrochloride (Amitriptyline) 50 MG TAB 1 Tablet ORAL Every night Comments: Last Taken:07/10/14 Time:2200 Diazepam (Valium) 5 MG TAB 5 Milligram ORAL THREE TIMES DAILY as needed for SPASMS Qty = 25 Albuterol Sulfate (Proair Hfa) 8.5 GM HFA.AER.AD 2 Puff Inhale through mouth EVERY 4-6 HOURS NEEDED as needed for wheezing Qty = 1 Cholecalciferol (Vitamin D3) (Vitamin D3) 1,000 UNIT CAPSULE 1 Capsule ORAL DAILY Fluoxetine HCl (Prozac) 40 MG CAPSULE 1 Capsule ORAL DAILY Atorvastatin Calcium (Lipitor) 20 MG TABLET 1 Tablet ORAL DAILY [POTASSIUM] 50 MG TAB 1 Tablet ORAL DAILY Comments: PT STATES BUYS OTC, THINKS DOSE IS 50 MG BUT IS UNSURE. DOES NOT THINK ITS MEQ. Multivitamin (Multivitamins) 1 EACH CAPSULE 1 Capsule ORAL Every Day Start taking the following new medications: Metoprolol Tartrate (Metoprolol Tartrate) 25 MG TABLET 25 Milligram ORAL TWICE DAILY Qty = 30 No Refills Aspirin (Aspirin*) 325 MG TABLET 325 Milligram ORAL DAILY Qty = 30 No Refills Clopidogrel Bisulfate (Plavix) 75 MG TABLET 75 Milligram ORAL DAILY Qty = 30 No Refills Heparin (Heparin-1/2NS 25,000 Units/500) 25,000 UNIT/500 ML (50 UNIT/ML) IV.SOLN 500 Milliliters INTRAVEN EVERY 24 HOURS Qty = 1 No Refills Copies To: Joelle Meadows MD
[2017-10-15] MEDS ORDERED: HEPARIN-1/25000 UNI1 IV (17:39)
[2017-10-15] MEDS ORDERED: METOPROLOL TART25 M1 PO (17:39)
[2017-10-15] MEDS ORDERED: PLAVIX75 M1 PO (17:39)
[2017-10-15] MEDS ORDERED: ASPIRIN325 M2 PO (17:39)
--- NOTE | 2017-10-15 17:41 | Patient Discharge Instructions ---
Discharge Instructions General Discharge Information You were seen/treated for: 1. Chest pain syndrome suggestive of unstable angina 2. HLD 3. Anxiety. Special Instructions: F/U with your area director F/U with your PCP Take your medications as prescribed Acute Coronary Syndrome Inclusion Criteria At DC or during hospital stay patient has or had the following: ACS DIAGNOSIS No Discharge Core Measures Meds if any: Prescribed or Continued at Discharge Meds if any: NOT Prescribed or Continued at Discharge Congestive Heart Failure Inclusion Criteria At DC or during hospital stay patient has or had the following: CHF DIAGNOSIS No Discharge Core Measures Meds if any: Prescribed or Continued at Discharge Meds if any: NOT Prescribed or Continued at Discharge Cerebrovascular accident Inclusion Criteria At DC or during hospital stay patient has or had the following: CVA/TIA Diagnosis No Discharge Core Measures Meds if any: Prescribed or Continued at Discharge Meds if any: NOT Prescribed or Continued at Discharge Venous thromboembolism Inclusion Criteria VTE Diagnosis No VTE Type NONE VTE Confirmed by (Test) NONE Discharge Core Measures - Per Current guidelines, there needs to be overlap - treatment for the first 5 days of Warfarin therapy. - If discharged on Warfarin prior to 5 days of - overlap therapy, the patient will need to be - assessed for post discharge needs including - *Post discharge parental anticoagulation - *Warfarin and/or parental anticoagulation education - *Follow up date to check INR post discharge At least 5 days overlap therapy as Inpatient No Meds if any: Prescribed or Continued at Discharge Note: Overlap Therapy is Warfarin and Anticoagulant Meds if any: NOT Prescribed or Continued at Discharge
--- NOTE | 2017-10-16 07:35 | ECHOCARDIOGRAM REPORT ---
JOHAN CARBALLO Age: 62 : 1955 Gender: F Exam Date: 10/15/2017 14:04 Exam Location: [place] Ht (in): 58 Wt (lb): 212 BSA: 2.05 BP: 122 / 66 Ordering Physician: Lamberto Brandon MD Referring Physician: Max Hager MD, PhD Technologist: Perlita Parker [facility] Room Number: [id number] Indications: CHEST PAIN Rhythm: Sinus Technical Quality: good FINDINGS Left Ventricle Normal left ventricular size with mild left ventricular hypertrophy. Normal systolic function with no obvious regional wall motion abnormalities. Normal left ventricular diastolic filling pattern for age. The ejection fraction is visually estimated at 60%. Right Ventricle The right ventricle is normal in size and function. Right Atrium The right atrium is normal in size. Left Atrium The left atrium is mildly enlarged. The interatrial septum is intact. Mitral Valve The mitral valve is normal in structure and function. There is mild mitral regurgitation. Aortic Valve Structurally normal aortic valve without significant sclerosis or stenosis. There is no aortic regurgitation. Tricuspid Valve The tricuspid valve is normal in structure and function. There is mild tricuspid regurgitation. Pulmonary artery systolic pressure is normal. Pulmonic Valve Structurally normal pulmonic valve. There is no pulmonic regurgitation. Pericardium Normal pericardium without effusion. No pleural effusion. Great Vessels Normal aortic root dimension. The aortic arch and great vessels are well seen and are normal. CONCLUSIONS 2. Mild left ventricular hypertrophy. 3. Mild left atrial enlargement. 4. Mild mitral regurgitation. 5. Mild tricuspid regurgitation. Max Hager M.D. (Electronically Signed) Final Date: 16 October 2017 07:35 MEASUREMENTS (Male / Female) Normal Values 2D ECHO LV Diastolic Diameter PLAX 3.7 cm 4.2 - 5.9 / 3.9 - 5.3 cm LV Systolic Diameter PLAX 2.4 cm 2.1 - 4.0 cm LV Fractional Shortening PLAX 35.1 % 25 - 46 % LV Ejection Fraction 2D Teich 65.3 % IVS Diastolic Thickness 1.3 cm LVPW Diastolic Thickness 1.3 cm LV Relative Wall Thickness 0.7 RV Internal Dim ED PLAX 3.0 cm 1.9 - 3.8 cm LVOT Diameter 1.8 cm Aortic Root Diameter 2.8 cm LA Systolic Diameter LX 4.1 cm 3.0 - 4.0 / 2.7 - 3.8 cm LA Volume 35.0 cm 18 - 58 / 22 - 52 cm Ascending Aorta Diameter 2.9 cm DOPPLER AV Peak Velocity 135.0 cm/s AV Peak Gradient 7.3 mmHg AV Mean Velocity 93.3 cm/s AV Mean Gradient 4.0 mmHg AV Velocity Time Integral 35.2 cm LVOT Peak Velocity 121.0 cm/s LVOT Peak Gradient 5.9 mmHg LVOT Mean Velocity 77.4 cm/s LVOT Mean Gradient 3.0 mmHg LVOT Velocity Time Integral 28.8 cm LVOT Stroke Volume 73.3 cm AV Area Cont Eq vti 2.1 cm AV Area Cont Eq pk 2.3 cm MV Peak Velocity 82.6 cm/s MV Peak Gradient 2.7 mmHg MV Mean Velocity 37.3 cm/s MV Mean Gradient 1.0 mmHg Mitral E Point Velocity 80.0 cm/s Mitral A Point Velocity 68.1 cm/s Mitral E to A Ratio 1.2 MV PHT Velocity 74.7 cm/s MV Deceleration Converse 211.0 cm/s MV Pressure Half Time 106.2 ms MV Area PHT 2.1 cm MV Deceleration Time 173.0 ms TR Peak Velocity 239.0 cm/s TR Peak Gradient 22.8 mmHg Right Atrial Pressure 5.0 mmHg Pulmonary Artery Systolic Pressu 27.8 mmHg Right Ventricular Systolic Press 27.8 mmHg PV Peak Velocity 88.2 cm/s PV Peak Gradient 3.1 mmHg PV Mean Velocity 58.2 cm/s PV Mean Gradient 2.0 mmHg PV Velocity Time Integral 24.7 cm LV E' Lateral Velocity 10.8 cm/s Mitral E to LV E' Lateral Ratio 7.4 LV E' Septal Velocity 5.9 cm/s Mitral E to LV E' Septal Ratio 13.4
== END 2017-10-15 19:40 | disposition short-term general hospital (02) | DRG 311 ==
LOC: ERH 10:18 → ERHI 12:25 → ENRESERV 14:48 → ENTRNSPT 16:06 → 1NO 17:03 → CMPTRNSPT 17:07 → 1NO 10-15 19:40
PROVIDERS: Emergency Medicine; Internal Medicine Interventional Cardiology; Student in an Organized Health Care Education/Training Program
DX: I20.0 Unstable angina (principal); K51.90 Ulcerative colitis, unspecified, without complications; Z68.41 Body mass index [BMI] 40.0-44.9, adult; E78.5 Hyperlipidemia, unspecified; F41.9 Anxiety disorder, unspecified; G43.909 Migraine, unspecified, not intractable, without status migrainosus; K57.90 Diverticulosis of intestine, part unspecified, without perforation or abscess without bleeding; G47.00 Insomnia, unspecified; E66.9 Obesity, unspecified; Z87.891 Personal history of nicotine dependence; F12.90 Cannabis use, unspecified, uncomplicated
CPT/HCPCS: 1NSP; 36415; 36592; 71045; 80307; 82436; 93005; 93010; 93306; J1644